=== PATIENT | female | born 1955 | race Caucasian/White ===

== ENCOUNTER → 2020-12-20 | Outpatient (CLI) | payer MEDICARE, OTHER | LOC: US 13:00 | DX: R22.42 Localized swelling, mass and lump, left lower limb (principal) | CPT/HCPCS: 93971 ==

== ENCOUNTER → 2021-01-02 | Outpatient (CLI) | payer MEDICARE, OTHER | LOC: KOH-I 08:10 | DX: R22.42 Localized swelling, mass and lump, left lower limb (principal) | CPT/HCPCS: 73718 ==

== ENCOUNTER 2021-06-22 02:26 | Emergency (ER) | payer MEDICARE, OTHER ==
[2021-06-22 03:03] LABS: HEMOGLOBIN 12.6 gm/dl (12.3-15.3); RED BLOOD COUNT 4.02 M/UL (4.00-5.10); WHITE BLOOD COUNT 2.7 K/UL (4.5-11.0)
[2021-06-22 03:36] LABS: BUN/CREATININE RATIO 14 (0-10)
[2021-06-22] MEDS ORDERED: CEFDINIR300 MG PO (07:47)
== END 2021-06-22 09:10 | disposition home or self-care (01) ==
LOC: ER1 02:26
PROVIDERS: Physician Assistant
DX: U07.1 COVID-19 (principal); J44.0 Chronic obstructive pulmonary disease with (acute) lower respiratory infection; J12.82 Pneumonia due to coronavirus disease 2019; J44.1 Chronic obstructive pulmonary disease with (acute) exacerbation; N39.0 Urinary tract infection, site not specified; Z85.3 Personal history of malignant neoplasm of breast
CPT/HCPCS: 0240U; 36600; 71045; 80053; 81001; 82550; 82553; 82803; 83605; 83690; 83874; 84484; 85025; 85379; 87040; 93005; 94664; 96374; 99285; J1100; Q9967

== ENCOUNTER → 2021-08-12 | Outpatient (CLI) | payer MEDICARE, OTHER ==
[~2021-08-12] MED LIST: CEFDINIR300 MG PO
== END ==
LOC: KOH-I 10:38
DX: E07.89 Other specified disorders of thyroid (principal); E04.2 Nontoxic multinodular goiter
CPT/HCPCS: 76536